=== PATIENT | female | born 1995 | race Caucasian/White ===

== ENCOUNTER → 2018-11-07 | Outpatient (CLI) | payer OTHER ==
[~2018-11-07] MED LIST: AMOX1XR PO; AMPDEX30CR PO; IBUP800 PO; ONDA4ODT MM; ORTHO TRI-CYCL1 EACH PO; PHENA100 PO; Percocet 5-3251 EACH PO; SULTRIDS PO
[2018-11-07 11:32] LABS: BASOPHILS ABSOLUTE AUTO 0.03 K/mm3 (0.00-0.23); BASOPHILS PERCENT AUTO 0 % (0-2); EOSINOPHILS ABSOLUTE AUTO 0.08 K/mm3 (0.00-0.68); EOSINOPHILS PERCENT AUTO 1 % (0-6); Hematocrit 44.2 % (33.0-51.0); Hemoglobin 14.3 g/dL (11.5-16.0); IMMATURE GRAN ABSOLUTE AUTO 0.05 K/mm3 (0.00-0.10); IMMATURE GRAN PERCENT AUTO 1 % (0-1); LYMPHOCYTES ABSOLUTE AUTO 1.26 K/mm3 (0.84-5.20); LYMPHOCYTES PERCENT AUTO 13 % (21-46); MONOCYTES ABSOLUTE AUTO 0.45 K/mm3 (0.16-1.47); MONOCYTES PERCENT AUTO 5 % (4-13); Mean Corpuscular HGB 27.8 pg (26.0-34.0); Mean Corpuscular HGB Conc 32.4 g/dL (31.5-36.5); Mean Corpuscular Volume 86 fL (80-100); Mean Platelet Volume 9.7 fL (9.1-12.4); NEUTROPHILS ABSOLUTE AUTO 8.14 K/mm3 (1.96-9.15); NEUTROPHILS PERCENT AUTO 81 % (41-73); Platelet Count 279 K/mm3 (150-400); RDW Coefficient Variation 12.9 % (11.7-14.2); RDW Standard Deviation 40.3 fL (35.1-46.3); Red Blood Cell Count 5.14 M/mm3 (3.80-5.20); White Blood Cell Count 10.01 K/mm3 (4.00-11.30)
[2018-11-07 11:42] LABS: Alanine Aminotransfer (ALT/SGP 13 U/L (12-78); Albumin, Blood 4.3 g/dL (3.4-5.0); Alk Phos 93 U/L (40-126); Anion Gap 10 mmol/L (6-16); Aspartate Aminotrans (AST/SGOT 19 U/L (12-37); Bilirubin, Total 0.3 mg/dL (0.1-1.0); Blood Urea Nitrogen 15 mg/dL (8-24); Bun/Creatinine Ratio 15.3 (12.0-20.0); CO2, Blood 29 mmol/L (21-32); Calcium, Blood 9.4 mg/dL (8.5-10.1); Chloride, Blood 104 mmol/L (98-108); Creatinine, Blood 0.98 mg/dL (0.40-1.00); Globulin, Blood 4.1 g/dL (2.2-4.0); Glomerular Filtration Rate >60 (60-); Glucose, Blood 83 mg/dL (70-99); Sodium, Blood 143 mmol/L (136-145); Total Protein, Blood 8.4 g/dL (6.4-8.2)
[2018-11-08 02:06] LABS: HBSAG SCREEN Negative (Negative); HEP A AB, IGM Negative (Negative); HEP B CORE AB, IGM Negative (Negative); HEP C VIRUS AB <0.1 (0.0-0.9); HIV SCREEN 4TH GENERATION WRFX Non Reactive (Non Reactive)
[2018-11-11 04:07] LABS: CHLAMYDIA BY NAA Negative (Negative); GONOCOCCUS BY NAA Negative (Negative); TRICH VAG BY NAA Negative (Negative)
== END | disposition home or self-care (01) ==
LOC: LAB SHORT 11:26 → LAB EV 11:26
PROVIDERS: General Practice
DX: J02.9 Acute pharyngitis, unspecified (principal); Z20.9 Contact with and (suspected) exposure to unspecified communicable disease
CPT/HCPCS: 80053; 80074; 85025; 86592; 87081; 87389; 87491; 87591; 87661

== ENCOUNTER 2020-01-28 13:45 | Emergency (ER) | payer OTHER ==
[~2020-01-28] VITALS: Ht 160 cm; Wt 54.4 kg
[~2020-01-28 13:45] MED LIST changes: +Amphetamine Sal15 MG PO
== END 2020-01-28 16:52 | disposition short-term general hospital (02) ==
LOC: ER 13:45
DX: T18.198A Other foreign object in esophagus causing other injury, initial encounter (principal); F17.290 Nicotine dependence, other tobacco product, uncomplicated; Z20.828 Contact with and (suspected) exposure to other viral communicable diseases; Z79.899 Other long term (current) drug therapy
CPT/HCPCS: 71045; 99284-25; U0004

== ENCOUNTER 2020-11-05 00:32 | Emergency (ER) | payer OTHER ==
[~2020-11-05] VITALS: Ht 160 cm; Wt 63.5 kg
[2020-11-05 01:54] LABS: Alanine Aminotransfer (ALT/SGP 15 U/L (12-78); Albumin, Blood 4.2 g/dL (3.4-5.0); Albumin/Globulin Ratio 1.2 (0.8-1.8); Alk Phos 68 U/L (50-136); Anion Gap 5 mmol/L (6-16); Aspartate Aminotrans (AST/SGOT 14 U/L (12-37); Bilirubin, Total 0.4 mg/dL (0.1-1.0); Blood Urea Nitrogen 10 mg/dL (8-24); Bun/Creatinine Ratio 11.9 (12.0-20.0); CO2, Blood 26 mmol/L (21-32); Calcium, Blood 9.1 mg/dL (8.5-10.1); Chloride, Blood 109 mmol/L (98-108); Creatinine, Blood 0.84 mg/dL (0.40-1.00); Globulin, Blood 3.6 g/dL (2.2-4.0); Glomerular Filtration Rate >60 (60-); Glucose, Blood 79 mg/dL (70-99); Sodium, Blood 140 mmol/L (136-145); Total Protein, Blood 7.8 g/dL (6.4-8.2)
[2020-11-05 02:00] LABS: BASOPHILS ABSOLUTE AUTO 0.04 K/mm3 (0.00-0.23); BASOPHILS PERCENT AUTO 1 % (0-2); EOSINOPHILS ABSOLUTE AUTO 0.08 K/mm3 (0.00-0.68); EOSINOPHILS PERCENT AUTO 1 % (0-6); Hematocrit 44.4 % (33.0-51.0); Hemoglobin 14.9 g/dL (11.5-16.0); IMMATURE GRAN ABSOLUTE AUTO 0.07 K/mm3 (0.00-0.10); IMMATURE GRAN PERCENT AUTO 1 % (0-1); LYMPHOCYTES ABSOLUTE AUTO 1.73 K/mm3 (0.84-5.20); LYMPHOCYTES PERCENT AUTO 21 % (21-46); MONOCYTES ABSOLUTE AUTO 0.52 K/mm3 (0.16-1.47); MONOCYTES PERCENT AUTO 6 % (4-13); Mean Corpuscular HGB 29.8 pg (26.0-34.0); Mean Corpuscular HGB Conc 33.6 g/dL (31.5-36.5); Mean Corpuscular Volume 89 fL (80-100); Mean Platelet Volume 10.4 fL (9.1-12.4); NEUTROPHILS ABSOLUTE AUTO 5.74 K/mm3 (1.96-9.15); NEUTROPHILS PERCENT AUTO 70 % (41-73); Platelet Count 216 K/mm3 (150-400); RDW Coefficient Variation 11.8 % (11.7-14.2); RDW Standard Deviation 37.3 fL (35.1-46.3); White Blood Cell Count 8.18 K/mm3 (4.00-11.30)
[2020-11-05 04:57] LABS: Source, Urine Clean Catch
[2020-11-05 05:04] LABS: Blood, Urine 1+ (Neg); Glucose Qualitative, Urine Neg (Neg); Ketones, Urine 1+ (Neg); Leukocyte Esterase, Urine 1+ (Neg); Nitrite, Urine Neg (Neg); Protein, Urine 3+ (Neg); Urobilinogen, Urine 2+ (Normal)
[2020-11-05 05:05] LABS: Appearance, Urine Cloudy (Clear); Bilirubin, Urine 1+ (Neg); Color, Urine Amber (P-Yellow)
[2020-11-05 05:10] LABS: Amorphous Mod (0-Heavy); Bacteria Mod /hpf; Calcium Oxalate Crystals Few /hpf; Mucus Heavy (0-Heavy); Red Blood Cells, Urine Rare /hpf (0-2); Squamous Epithelial Cells Few /hpf (Few)
[2020-11-05] MEDS ORDERED: ONDA4ODT MM (05:41)
== END 2020-11-05 06:04 | disposition home or self-care (01) ==
LOC: ER 00:32
PROVIDERS: Physician Assistant
DX: K52.9 Noninfective gastroenteritis and colitis, unspecified (principal); F17.200 Nicotine dependence, unspecified, uncomplicated
CPT/HCPCS: 80053; 81001; 81025; 85025; 87086; 99283; A9270

== ENCOUNTER → 2024-09-29 | Outpatient (CLI) | payer OTHER ==
[~2024-09-29] MED LIST changes: +DELTASONE20 MG PO
[2024-09-29 10:19] LABS: Source, Urine Clean Catch
[2024-09-29 13:30] LABS: Bilirubin, Urine Neg (Neg); Color, Urine Yellow (P-Yellow); Glucose Qualitative, Urine Neg (Neg); Ketones, Urine 2+ (Neg); Leukocyte Esterase, Urine Neg (Neg); Protein, Urine Neg (Neg); Specific Gravity, Urine 1.015 (1.003-1.022); Urobilinogen, Urine NORM (Normal)
[2024-09-29 13:45] LABS: Red Blood Cells, Urine 0-2 /hpf (0-2); White Blood Cells, Urine 0-2 /hpf (0-5)
[2024-09-29 15:09] LABS: Bacterial Vaginosis PCR Negative (NEGATIVE); Candida Group, PCR NOT DETECTED (NOT DETECT); Candida glabrata-krusei, PCR NOT DETECTED (NOT DETECT)
== END | disposition home or self-care (01) ==
LOC: LAB 10:14 → LAB SHORT 10:14
PROVIDERS: Obstetrics & Gynecology
DX: O47.9 False labor, unspecified (principal)
CPT/HCPCS: 81001; 81515

== ENCOUNTER → 2024-12-29 | Outpatient (CLI) | payer OTHER ==
[2024-12-30 11:51] LABS: Chlamydia Trachomatis Vaginal NOT DETECTED (NOT DETECT); Neisseria Gonorrhoea Vaginal NOT DETECTED (NOT DETECT)
== END ==
LOC: LAB 16:23 → LAB SHORT 16:23
PROVIDERS: Obstetrics & Gynecology
DX: O09.93 Supervision of high risk pregnancy, unspecified, third trimester (principal); Z11.3 Encounter for screening for infections with a predominantly sexual mode of transmission; Z3A.00 Weeks of gestation of pregnancy not specified
CPT/HCPCS: 87081; 87491; 87591

== ENCOUNTER 2025-01-23 13:23 | Inpatient (IN) | payer OTHER ==
[2025-01-23] VITALS (9 sets, daily range): BP systolic 106–145; BP diastolic 58–82
[~2025-01-23] VITALS: Ht 160 cm; Wt 64.3 kg
[2025-01-23] MEDS ORDERED: Oxytocin 10 Unit / ML Vial IM PRN (13:50)
[2025-01-23] MEDS ORDERED: Tranexamic Acid 100 ML IV SCH (13:50)
[2025-01-23] MEDS ORDERED: OXYTOCIN/RINGER'S LACTATE 500 ML IV PRN (13:50)
[2025-01-23] MEDS ORDERED: Carboprost Tromethamine 250 MCG/ML 1ML Amp IM PRN (13:50)
[2025-01-23] MEDS ORDERED: Ondansetron HCl 2 MG / ML 2ML Vial IV PRN (13:50)
[2025-01-23] MEDS ORDERED: Methylergonovine Maleate 0.2MG / ML 1ML Amp IM PRN ×2 (13:50→17:00)
[2025-01-23 15:27] LABS: BASOPHILS ABSOLUTE AUTO 0.06 K/mm3 (0.00-0.23); BASOPHILS PERCENT AUTO 0 % (0-2); EOSINOPHILS ABSOLUTE AUTO 0.01 K/mm3 (0.00-0.68); EOSINOPHILS PERCENT AUTO 0 % (0-6); Hematocrit 34.8 % (33.0-51.0); Hemoglobin 12.0 g/dL (11.5-16.0); IMMATURE GRAN ABSOLUTE AUTO 0.25 K/mm3 (0.00-0.10); IMMATURE GRAN PERCENT AUTO 1 % (0-1); LYMPHOCYTES ABSOLUTE AUTO 1.80 K/mm3 (0.84-5.20); LYMPHOCYTES PERCENT AUTO 9 % (21-46); MONOCYTES ABSOLUTE AUTO 0.76 K/mm3 (0.16-1.47); MONOCYTES PERCENT AUTO 4 % (4-13); Mean Corpuscular HGB Conc 34.5 g/dL (31.5-36.5); Mean Corpuscular Volume 86 fL (80-100); NEUTROPHILS ABSOLUTE AUTO 18.06 K/mm3 (1.96-9.15); NEUTROPHILS PERCENT AUTO 86 % (41-73); NRBC ABSOLUTE 0.00 K/mm3 (0.00-0.02); NRBC Auto 0.0 /100 WBC (0.0-0.2); Platelet Count 258 K/mm3 (150-400); RDW Coefficient Variation 12.2 % (11.7-14.2); RDW Standard Deviation 38.1 fL (35.1-46.3)
[2025-01-23] MEDS ORDERED: FentaNYL Citrate 50 MCG/ML 2 ML Injection ONE (16:09)
[2025-01-23] MEDS ORDERED: FLU VACC TS2025-26(6MOS UP)/PF 45 MCG/0.5 ML SYRINGE IM SCH (16:55)
[2025-01-23] MEDS ORDERED: Ketorolac Tromethamine 30mg Vial IV PRN (16:55)
[2025-01-23] MEDS ORDERED: Benzocaine Topical Anesthetic Spray 60GM TOP PRN (16:55)
[2025-01-23] MEDS ORDERED: Witch Hazel/Glycerin PADS TOP PRN (16:55)
[2025-01-23] MEDS ORDERED: OXYTOCIN/RINGER'S LACTATE 500 ML IV SCH (17:00)
[2025-01-23] MEDS ORDERED: FentaNYL Citrate 50 MCG/ML 2 ML Injection IV ONE (17:10)
[2025-01-24 00:11] VITALS: BP 125/77
[2025-01-24 05:30] VITALS: BP 117/60
[2025-01-24 07:35] VITALS: BP 123/77
[2025-01-24] MEDS ORDERED: Prenatal Vit/FE Fumarate/FA 1 Tab PO SCH (09:00)
[2025-01-24 12:47] VITALS: BP 138/82
[2025-01-24 18:23] VITALS: BP 120/78
== END 2025-01-24 18:45 | disposition home or self-care (01) | DRG 806 ==
LOC: OBS 13:23 → BC 13:24 → OBS 13:47 → BC 13:51
PROVIDERS: ADMIT Obstetrics & Gynecology
PROC: 10E0XZZ Delivery of Products of Conception, External Approach (ICD-10-PCS; principal; 2025-01-23)
PROC: 0KQM0ZZ Repair Perineum Muscle, Open Approach (ICD-10-PCS; 2025-01-23)
PROC: 10907ZC Drainage of Amniotic Fluid, Therapeutic from Products of Conception, Via Natural or Artificial Opening (ICD-10-PCS; 2025-01-23)
PROC: 3E02340 Introduction of Influenza Vaccine into Muscle, Percutaneous Approach (ICD-10-PCS; 2025-01-23)
DX: O99.344 Other mental disorders complicating childbirth (principal); O99.324 Drug use complicating childbirth; Z37.0 Single live birth; F90.9 Attention-deficit hyperactivity disorder, unspecified type; Z3A.39 39 weeks gestation of pregnancy; O77.0 Labor and delivery complicated by meconium in amniotic fluid; F41.9 Anxiety disorder, unspecified; O70.1 Second degree perineal laceration during delivery; F32.A Depression, unspecified; O76 Abnormality in fetal heart rate and rhythm complicating labor and delivery; F12.90 Cannabis use, unspecified, uncomplicated; Z98.890 Other specified postprocedural states; Z87.891 Personal history of nicotine dependence; Z79.899 Other long term (current) drug therapy; Z23 Encounter for immunization
CPT/HCPCS: 36415; 85025; A9270; J1885; J2590; J3010; J7120